=== PATIENT | female | born 1985 | race Caucasian/White ===

== ENCOUNTER → 2021-03-29 | Outpatient (CLI) | payer OTHER | LOC: M.ULTRA 09:30 | PROVIDERS: ATTEND Radiology Diagnostic Radiology | DX: N60.02 Solitary cyst of left breast (principal) ==

== ENCOUNTER 2021-04-15 12:20 | Emergency (ER) | payer OTHER ==
[~2021-04-15] VITALS: Ht 165.1 cm; Wt 56.7 kg
[2021-04-15] MEDS ORDERED: ADDERALL 10 MG10 MG PO (12:34)
[2021-04-15] MEDS ORDERED: BACTRIM DS TAB1 EACH PO (14:45)
[2021-04-15 15:05] VITALS: BP 125/85
== END 2021-04-15 15:05 | disposition home or self-care (01) ==
LOC: M.ERS 12:20
DX: N61.0 Mastitis without abscess (principal); Z79.899 Other long term (current) drug therapy; Z91.040 Latex allergy status